=== PATIENT | female | born 1960 | race Caucasian/White ===

== ENCOUNTER 2017-07-03 03:01 | Emergency (ER) | payer OTHER ==
[~2017-07-03] VITALS: Ht 167.6 cm; Wt 79.5 kg
[~2017-07-03 03:01] MED LIST: LORT5TAB PO; PREMPRO PO; TAB-TAB; VITA500T10
[2017-07-03 03:05] VITALS: BP 125/76; PULSE 75; RESP 20; TEMP 98.6; O2SAT 98
[2017-07-03] MEDS ORDERED: METO1TAB42 PO (03:45)
[2017-07-03 06:06] LABS: AUTOMATED NEUTROPHIL # 2.9 TH/MM3 (1.8-7.7); BASOPHIL % 0.4 % (0.0-2.0); EOSINOPHIL # 0.2 TH/MM3 (0-0.4); EOSINOPHIL % 3.9 % (0.0-4.0); HEMATOCRIT 40.7 % (35.0-46.0); HEMOGLOBIN 13.8 GM/DL (11.6-15.3); LYMPH % 39.9 % (9.0-44.0); LYMPHOCYTE # 2.5 TH/MM3 (1.0-4.8); MEAN CELL VOLUME 88.3 FL (80.0-100.0); MEAN CORPUSCULAR HEMOGLOBIN 29.9 PG (27.0-34.0); MEAN CORPUSCULAR HGB CONC 33.9 % (32.0-36.0); MEAN PLATELET VOLUME 8.4 FL (7.0-11.0); MONO % 8.7 % (0.0-8.0); MONOCYTE # 0.5 TH/MM3 (0-0.9); NEUT % 47.1 % (16.0-70.0); PLATELET COUNT 241 TH/MM3 (150-450); RED BLOOD COUNT 4.61 MIL/MM3 (4.00-5.30); RED CELL DISTRIBUTION WIDTH 13.2 % (11.6-17.2); WHITE BLOOD COUNT 6.3 TH/MM3 (4.0-11.0)
[2017-07-03 06:07] LABS: ALBUMIN 4.1 GM/DL (3.4-5.0); ALT (GPT) 28 U/L (10-53); AST (GOT) 22 U/L (15-37); BICARBONATE 24.8 MEQ/L (21.0-32.0); BLOOD UREA NITROGEN 13 MG/DL (7-18); CHLORIDE 107 MEQ/L (98-107); GLOMERULAR FILTRATION RATE 86 ML/MIN (>89); GLUCOSE,RANDOM 100 MG/DL (74-106); SODIUM (NA) 139 MEQ/L (136-145)
[2017-07-03 06:09] LABS: ALKALINE PHOSPHATASE 109 U/L (45-117); TOTAL BILIRUBIN ADULT 0.2 MG/DL (0.2-1.0); TOTAL PROTEIN 7.1 GM/DL (6.4-8.2)
[2017-07-03] MEDS ORDERED: ZIDOVUDINE 100 MG CAP PO ONE ×2 (06:30→07:00)
[2017-07-03] MEDS ORDERED: LOPINAVIR/RITONAVIR 200 MG/50 MG TAB PO ONE (06:30)
--- NOTE | 2017-07-03 06:32 | PD ---
HPI Chief Complaint: Exposure to Blood/Body Fluids Time Seen by Provider: 06:29 Travel History International Travel<30 days: No Contact w/Intl Traveler<30days: No Traveled to known affect area: No History of Present Illness HPI 57-year-old female presents to the emergency department for evaluation of post exposure needlestick. 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 Patient immediately expressed blood from the wound site and wash site vigorously. Patient has had her hepatitis B vaccine. Patient states that the source patient admits to IV substance abuse and is not aware of known history of hepatitis C or HIV. Source patient agreeable to provides specimens for testing. Patient denies any personal history of hepatitis or HIV. Patient is otherwise in good health. PFSH Past Medical History Narrative Medical Hysterectomy SVT tobacco use; nursing notes reviewed Heart Rhythm Problems: Yes (SVT) Cardiovascular Problems: Yes Diminished Hearing: No Medical other: Yes (ACUTE TRANSVERSE MYELITIS) Tetanus Vaccination: > 5 Years Influenza Vaccination: No ?: Not : 1 Para: 1 Past Surgical History Gynecologic Surgery: Yes (BILATERAL OOPHERECTOMY) Hysterectomy: Yes (PARTIAL) Other Surgery: Yes (RIGHT INGUINAL HERNIA) Social History Tobacco Use: Yes (1/2 PPD) Substance Use: No Allergies-Medications (Allergen,Severity, Reaction): Coded Allergies: No Known Allergies (Verified Adverse Reaction, Unknown, 07/03/17) Reported Meds & Prescriptions Reported Meds & Active Scripts Active Kaletra (Lopinavir/Ritonavir) 200-50 Mg Tab 2 Tab PO Q12HR 5 Days Fill this 5 day prescription first & begin taking Kaletra 12 hours after the first dose received in the Emergency Department as prescribed. Zidovudine 300 Mg Tab 300 Mg PO Q12HR 5 Days Lamivudine 150 Mg Tab 150 Mg PO BID 5 Days Reported Metoprolol Succinate ER 24 HR (Metoprolol Succinate) 25 Mg Tab 25 Mg PO DAILY Review of Systems Except as stated in HPI: all other systems reviewed are Neg Physical Exam Narrative GENERAL: Well-developed well-nourished female no acute distress or respiratory distress SKIN: Warm and dry. MUSCULOSKELETAL: No cyanosis, or edema. Attention left fifth digit distal aspect of pad with small puncture wound and superficial laceration subcentimeter with expressible blood. Capillary refill brisk and less than 2 second sensory exam intact otherwise neurovascular tendon intact. Data Data Last Documented VS Vital Signs Date Time Temp Pulse Resp B/P (MAP) Pulse Ox O2 Delivery O2 Flow Rate FiO2 07/03/17 06:55 65 18 120/68 (85) 97 Room Air 07/03/17 03:05 98.6 Orders Orders Complete Blood Count With Diff (07/03/17 05:47) Comprehensive Metabolic Panel (07/03/17 05:47) Amylase (07/03/17 05:47) Lamivudine (Epivir) (07/03/17 06:30) Zidovudine (Retrovir) (07/03/17 06:30) Lopinavir-Ritonavir 200-50 Mg (Kaletra 2 (07/03/17 06:30) Ed Discharge Order (07/03/17 06:32) Zidovudine (Retrovir) (07/03/17 07:00) Tetanus/Diphtheria Tox Adult (Tetanus/Di (07/03/17 07:15) Labs Laboratory Tests Test 07/03/17 03:30 White Blood Count 6.3 TH/MM3 Red Blood Count 4.61 MIL/MM3 Hemoglobin 13.8 GM/DL Hematocrit 40.7 % Mean Corpuscular Volume 88.3 FL Mean Corpuscular Hemoglobin 29.9 PG Mean Corpuscular Hemoglobin Concent 33.9 % Red Cell Distribution Width 13.2 % Platelet Count 241 TH/MM3 Mean Platelet Volume 8.4 FL Neutrophils (%) (Auto) 47.1 % Lymphocytes (%) (Auto) 39.9 % Monocytes (%) (Auto) 8.7 % Eosinophils (%) (Auto) 3.9 % Basophils (%) (Auto) 0.4 % Neutrophils # (Auto) 2.9 TH/MM3 Lymphocytes # (Auto) 2.5 TH/MM3 Monocytes # (Auto) 0.5 TH/MM3 Eosinophils # (Auto) 0.2 TH/MM3 Basophils # (Auto) 0.0 TH/MM3 CBC Comment DIFF FINAL Differential Comment Blood Urea Nitrogen 13 MG/DL Creatinine 0.70 MG/DL Random Glucose 100 MG/DL Total Protein 7.1 GM/DL Albumin 4.1 GM/DL Calcium Level 9.0 MG/DL Alkaline Phosphatase 109 U/L Aspartate Amino Transf (AST/SGOT) 22 U/L Alanine Aminotransferase (ALT/SGPT) 28 U/L Total Bilirubin 0.2 MG/DL Sodium Level 139 MEQ/L Potassium Level 3.9 MEQ/L Chloride Level 107 MEQ/L Carbon Dioxide Level 24.8 MEQ/L Anion Gap 7 MEQ/L Estimat Glomerular Filtration Rate 86 ML/MIN Amylase Level 20 U/L MDM Medical Decision Making Medical Screen Exam Complete: Yes Emergency Medical Condition: Yes Medical Record Reviewed: Yes Differential Diagnosis Puncture wound, post exposure puncture wound, coagulopathy Narrative Course Post exposure prophylaxis protocol initiated patient at risk due to source patient admitting to IV drug use and unknown status for HIV or hepatitis C therefore this was a puncture wound from a contaminated hollow hypodermic needle. Patient would be considered at high risk therefore prophylaxis is recommended. Tetanus status updated. Diagnosis Primary Impression: Needle stick injury of finger of left hand Qualified Codes: S61.239A - Puncture wound without foreign body of unspecified finger without damage to nail, initial encounter; W27.3XXA - Contact with needle (sewing), initial encounter Referrals: Employ [facility] 1 day Patient Instructions: Postexposure Prophylaxis (ED) Additional Instructions: Take medications as prescribed Follow-up with employee health 1 day Return to the emergency department for any concerns or change in condition Med/Other Pt SpecificInfo: Prescription(s) given Scripts Lopinavir-Ritonavir (Kaletra) 200-50 Mg Tab 2 TAB PO Q12HR for Mgmt Viral Infection for 5 Days, #20 TAB 0 Refills Fill this 5 day prescription first & begin taking Kaletra 12 hours after the first dose received in the Emergency Department as prescribed. Prov: Stephani Agudelo MD 07/03/17 Zidovudine (Zidovudine) 300 Mg Tab 300 MG PO Q12HR for 5 Days, TAB Prov: Stephani Agudelo MD 07/03/17 Lamivudine (Lamivudine) 150 Mg Tab 150 MG PO BID for Mgmt Viral Infection for 5 Days, #10 TAB 0 Refills Prov: Stephani Agudelo MD 07/03/17 Disposition: 01 DISCHARGE HOME Condition: Stable Stephani Agudelo MD Jul 03, 2017 06:32
[2017-07-03] MEDS ORDERED: ZIDO300T2 PO (06:52)
[2017-07-03] MEDS ORDERED: KALETRA200 PO (06:52)
[2017-07-03] MEDS ORDERED: LAMI1TAB7 PO (06:52)
[2017-07-03 06:55] VITALS: BP 120/68; PULSE 65; RESP 18; O2SAT 97
[2017-07-03] MEDS ORDERED: TETANUS/DIPHTHERIA TOXOID ADULT 0.5 ML VIAL IM ONE (07:15)
== END 2017-07-03 07:21 | disposition home or self-care (01) ==
LOC: PHED 03:01 → PHEFT 07:21
DX: S61.237A Puncture wound without foreign body of left little finger without damage to nail, initial encounter (principal); Z77.21 Contact with and (suspected) exposure to potentially hazardous body fluids; W46.1XXA Contact with contaminated hypodermic needle, initial encounter; Y92.230 Patient room in hospital as the place of occurrence of the external cause; Y99.0 Civilian activity done for income or pay; Z72.0 Tobacco use; Z23 Encounter for immunization
CPT/HCPCS: 80053; 82150; 85025; 90471; 90714